=== PATIENT | female | born 1990 | race Caucasian/White ===

== ENCOUNTER → 2018-08-25 12:13 | Outpatient (CLI) | payer BC, SELFPAY ==
[2018-08-25 13:59] LABS: HCG,Quantitative 16629 mIU/mL
== END ==
PROVIDERS: Visit Provider Nurse Practitioner Obstetrics & Gynecology
DX: Z34.90 Encounter for supervision of normal pregnancy, unspecified, unspecified trimester (principal)
CPT/HCPCS: 36415; 84702

== ENCOUNTER → 2018-08-26 11:58 | Outpatient (CLI) | payer BC, SELFPAY ==
[2018-08-26 13:01] LABS: Basophils % 0.2 % (0.1-2.0); Eosinophils # 0.1 K/mm3 (0.0-0.4); Eosinophils % 1.3 % (0.1-12.0); Hematocrit 33.1 % (37.0-47.0); Hemoglobin 10.6 g/dL (12.2-16.2); Lymphocytes # 1.7 K/mm3 (0.7-4.5); Lymphocytes % 16.2 % (10-50); Mean Corpuscular HGB Conc 32.1 g/dL (31.8-35.4); Mean Corpuscular Hemoglobin 28.7 pg (27.0-31.2); Mean Corpuscular Volume 89.5 fl (81-99); Mean Platelet Volume 7.8 fl (7.4-10.4); Monocytes # 0.5 K/mm3 (0.1-1.0); Monocytes % 4.7 % (1.7-9.3); Neutrophils # 8.2 K/mm3 (1.8-7.8); Neutrophils % 77.6 % (37.0-80.0); Platelet Count 425 K/mm3 (142-424); Red Blood Count 3.69 M/mm3 (4.20-5.40); Red Cell Distribution Width 13.3 % (11.5-17.5); White Blood Count 10.6 K/mm3 (4.8-10.8)
[2018-08-27 11:16] LABS: HIV Screen 4th Generation wRfx Non Reactive (Non Reactive); Hepatitis B Surface Antigen Negative (Negative); Hepatitis C Antibody <0.1 s/co ratio (0.0-0.9); Rapid Plasma Reagin Ab Titer Non Reactive (NonRea<1:1); Rubella Antibodies, IgG 1.57 index (Immune >0.99)
== END ==
PROVIDERS: Visit Provider Nurse Practitioner Obstetrics & Gynecology
DX: Z34.90 Encounter for supervision of normal pregnancy, unspecified, unspecified trimester (principal)
CPT/HCPCS: 36415; 85025; 86592; 86703; 86762; 86850; 87340; 87380; G0432

== ENCOUNTER → 2018-08-28 14:24 | Outpatient (CLI) | payer BC, SELFPAY ==
--- NOTE | 2018-08-28 14:26 | US_ITS ---
US OB /maternal detail: INDICATION: ITS.REASON: US OB Complete ORDERING PHYSICIAN: Marvel Fajardo MD PATIENT AGE: 28 years TECHNIQUE: ultrasound transabdominal scanning. COMPARISON: No previous relevant studies. FINDINGS: Single viable intrauterine gestation. Cephalic position. Placenta: Anterior placenta grade 1. There is average amount fluid. The VIRGILIO is 12 cm The cervix appears satisfactory. Closed and measuring 4 cm in length. Complete survey performed and was unremarkable on the submitted images as in PACS. No discrete anomalies identified on survey imaging by technologist. Active fetus. Three-vessel cord with satisfactory umbilical cord insertion. 4- chamber heart noted. Survey of brain & ventricles unremarkable. Face and neck survey unremarkable. Diaphragm and chest views unremarkable. Abdomen: Both kidneys noted and unremarkable. Stomach noted and satisfactory. Spine: Survey of the spine satisfactory with no anomalies identified nor imaged. Both arms and legs noted. Amniotic Fluid: Adequate. Maternal adnexa: No significant findings. Measurements: Average ultrasound age 30w2d. Gestational Age unknown. Estimated due date by ultrasound age 0311/04/2018. Estimated weight 1539 grams. BPD = 30w0d OFD = 30w3d HC = 30w1d AC = 30w1d FL = 30w5d Growth Percentile= not calculated as the patient's established due date is not given Heart Rate = 152 Humerus = 30w1d HC/AC is 1.06. CI is 76%. FL/BPD is 79%. FL/AC is 23%. IMPRESSION: There is a live intrauterine gestation with average ultrasound age of 30 weeks 2 days. All parameters correlate. No obvious anomalies. See above for detail
== END ==
PROVIDERS: Visit Provider Nurse Practitioner Obstetrics & Gynecology
DX: Z36.0 Encounter for antenatal screening for chromosomal anomalies (principal)
CPT/HCPCS: 76811

== ENCOUNTER → 2018-09-03 12:10 | Outpatient (CLI) | payer BC, SELFPAY ==
[2018-09-03 12:49] LABS: Glucose,Fasting 82 mg/dL (60-105)
[2018-09-03 14:35] LABS: Glucose 1 Hour 97 mg/dL (74-106)
== END ==
PROVIDERS: Visit Provider Nurse Practitioner Obstetrics & Gynecology
DX: Z34.90 Encounter for supervision of normal pregnancy, unspecified, unspecified trimester (principal)
CPT/HCPCS: 36415; 82951

== ENCOUNTER → 2018-10-07 17:42 | Outpatient (CLI) | payer BC, SELFPAY | PROVIDERS: Visit Provider Nurse Practitioner Obstetrics & Gynecology | DX: Z34.90 Encounter for supervision of normal pregnancy, unspecified, unspecified trimester (principal) | CPT/HCPCS: 86403 ==

== ENCOUNTER 2018-10-08 11:14 | Inpatient (IN) ==
[2018-10-08 11:53] LABS: Basophils % 0.2 % (0.1-2.0); Eosinophils # 0.1 K/mm3 (0.0-0.4); Eosinophils % 0.5 % (0.1-12.0); Hematocrit 36.3 % (37.0-47.0); Hemoglobin 11.9 g/dL (12.2-16.2); Lymphocytes # 1.7 K/mm3 (0.7-4.5); Lymphocytes % 12.4 % (10-50); Mean Corpuscular HGB Conc 32.7 g/dL (31.8-35.4); Mean Corpuscular Hemoglobin 29.4 pg (27.0-31.2); Mean Platelet Volume 8.7 fl (7.4-10.4); Monocytes # 0.6 K/mm3 (0.1-1.0); Monocytes % 4.4 % (1.7-9.3); Neutrophils % 82.4 % (37.0-80.0); Platelet Count 356 K/mm3 (142-424); Red Blood Count 4.03 M/mm3 (4.20-5.40); Red Cell Distribution Width 14.4 % (11.5-17.5); White Blood Count 13.4 K/mm3 (4.8-10.8)
[2018-10-08 13:35] LABS: Microscopic, Urine URINE MICROSCOPIC (MICROSCOPIC)
[2018-10-08 13:36] LABS: Appearance,Urine SL CLOUDY (Clear); Bilirubin,Urine Negative (Negative); Blood, Urine 2+ (Negative); Color,Urine YELLOW (Yellow); Glucose,Urine (UA) Negative (Negative); Ketones,Urine Negative (Negative); Leukocyte Esterase,Urine 1+ (Negative); PH,Urine 8.5 (5.0-8.5); Protein,Urine Negative (Negative); Specific Gravity, Urine 1.015 (1.005-1.030); Urobilinogen,Urine 0.2 EU/dl (0.2)
[2018-10-08 13:51] LABS: Amorphous Sediment,Urine 1+ /lpf; Bacteria,Urine Trace /lpf; Squamous Epithelial Cell,Urine 20-50 #/hpf (0-5)
--- NOTE | 2018-10-08 14:11 | Procedure Note ---
- Delivery Note Delivery Date:: 10/08/18 Delivery Time:: 13:52 Anesthesia Type: Epidural Was labor medically induced?: No Induction method: none Gestational age (weeks): 36 delivered prior to 39 weeks?: Yes Justification for early elective delivery:: Active Labor Infant Gender: Female at 1 minute: 8 at 5 minutes: 8 AF:: Clear fluid clear fluid Delivery Procedure:: She is a 28-year-old 2 para 1 who is 36 weeks gestational age. She began having contractions last night around 10 PM and came in in active labor. She was found to be 6 cm dilated and when I examined her she was 8 cm dilated. I ruptured her membranes and under labor epidural she progressed to full dilation. She delivered spontaneously a liveborn female child at 1:52 PM in the afternoon of October 08, 2017. He was a liveborn female child with Apgars of 8 at 1 minute and 8 at 5 minutes. On deliver the head the anterior shoulder rapidly delivered followed by the rest of the infant's body atraumatically. We allowed the cord to continue to pulsate for approximately 1 minute. The baby was stimulated and cried spontaneously. The cord was then doubly clamped and cut and the infant was handed off to Dr. Shah who assigned Apgars of 8 at 1 minute and 8 at 5 minutes. We then obtained cord blood as well as cord pH. Using gentle traction on the cord and countertraction on the fundus I was able to easily deliver the placenta intact at 1:58 PM. He had a normal three-vessel cord. There were no perineal or vaginal lacerations. Her estimated blood loss was approximately 300 cc.
--- NOTE | 2018-10-08 14:15 | History & Physical Report ---
OB - H&P: HPI Antepartum - History of Present Illness Chief complaint: Contractions History of present illness: She is a 28-year-old 2 para 1 who began having contractions last night. She came in in active labor and was found to be 6 cm dilated. - History of Present Criteria for establishing EDC:: based on LMP only care: limited care Ultrasounds: normal mid trimester US Obstetrical complications: none Medical complications: none - Labs Blood type: A (+) positive Rubella: immune RPR/VDRL: nonreactive GBS status: unknown [facility] History I have reviewed the patient's past medical history: Yes Other Surgeries: Yes: Appendectomy - *Social History Smoking Status: Never smoker Tobacco Type: cigarettes Alcohol Intake: never *Occupational Status:: unemployed Family Hx:: No significant family history Review of Systems - Review of Systems Review of systems:: pertinent systems reviewed and negative unless documented below Meds Home Medications Medication Instructions Recorded Confirmed Type pediatric multivitamin chewable 1 tab PO DAILY 08/26/18 10/08/18 History tablet RX: Ferrous Sulfate 325 mg PO DAILY 10/08/18 10/08/18 History Allergies Allergy/AdvReac Type Severity Reaction Status Date / Time No Known Allergies Allergy Verified 10/07/18 14:48 OB - H&P: Exam - Constitutional no acute distress - Routine HEENT Exam Head: Present: normocephalic Eye: Present: EOMI, PERRL ENT: Present: mucous membranes moist - Routine Neck Exam Present: supple, full ROM - Routine Respiratory Exam Absent: accessory muscle use (good air entry bilaterally), respiratory distress, wheezes, crackles - Routine Cardiovascular Exam Present: RRR. Absent: murmur - Routine Abdominal Exam Present: soft, normoactive bowel sounds. Absent: tenderness, distended, guarding - Routine Rectal Exam Patient deferred: visual exam, digital exam - Routine Exam Patient deferred: external exam, groin exam, perineal exam - Routine Extremities Exam Present: full ROM. Absent: cyanosis, edema - Routine Skin Exam Present: intact. Absent: cyanosis - Routine Neurological Exam Present: alert, oriented X3 - Routine Psychiatric Exam Present: normal affect OB - Results - Labs Labs: Short CBC 10/08/18 Range/Units 11:42 WBC 13.4 H (4.8-10.8) K/mm3 Hgb 11.9 L (12.2-16.2) g/dL Hct 36.3 L (37.0-47.0) % Plt Count 356 (142-424) K/mm3 Urine 10/08/18 Range/Units 13:00 Urine Color Yellow (Yellow) Urine Appearance Sl cloudy (Clear) Urine pH 8.5 (5.0-8.5) Ur Specific [place] 1.015 (1.005-1.030) Urine Protein Negative (Negative) Urine Glucose (UA) Negative (Negative) OB - A/P Antepartum (1) labor in third trimester with delivery Current visit: Yes Status: Acute - Additional Plan Planning to breastfeed?: Yes Plan: expectant management Additional Information:: She is 6 cm dilated and will get an epidural. We will expect a vaginal delivery. She is actively luz.
[2018-10-08 15:52] LABS: Amphetamine/Metha Screen,Urine Negative ng/mL (<1000); Barbiturates Screen,Urine Negative ng/mL (<200); Benzodiazepines Screen,Urine Negative ng/mL (<200); Cannabinoid Screen,Urine Negative ng/mL (<50); Cocaine Screen,Urine Negative ng/mL (<300); Methadone Screen,Urine Negative ng/mL (<300); Opiate Screen,Urine Negative ng/mL (<300); Phencyclidine Screen,Urine Negative ng/mL (<25)
--- NOTE | 2018-10-08 16:22 | Progress Note ---
[facility] Anesthesia Checklist - Structural Data Admitted From: Inpatient Planned Operative Procedure/s: labor epidural Consent for Planned Operative Procedure(s) Verified: Yes - Airway Assessment C-Spine Mobility Assessed: Yes TMJ Mobility Assessed: Yes Dentition: Good Dentition - Neurological Assessment Level of Consciousness: Awake, Alert, Appropriate - Anesthesia Plan Anesthesia Risk discussed: Yes Anesthesia Plan: Verified ASA Class: II Anesthesia Type: Epidural [facility] History I have reviewed the patient's past medical history: Yes Other Surgeries: Yes: Appendectomy - *Social History Smoking Status: Never smoker Tobacco Type: cigarettes Alcohol Intake: never *Occupational Status:: unemployed Family Hx:: No significant family history
[2018-10-08 21:52] VITALS: BP 133/82
[2018-10-09 07:36] LABS: Hematocrit 31.9 % (37.0-47.0)
[2018-10-09 07:37] LABS: Hemoglobin 10.6 g/dL (12.2-16.2)
--- NOTE | 2018-10-09 10:55 | Progress Note ---
Internal Medicine - PN: María *Date: 10/09/18 *Time: 10:55 Interval history: She continues to do well this morning. She is eating and drinking and ambulating. She is breast-feeding. Her lochia is normal. Exam Vital signs and Labs for Last 24 Hours: Temp Pulse Resp BP Pulse Ox 97.4 F L 75 18 133/82 100 10/08/18 19:42 10/08/18 19:42 10/08/18 19:42 10/08/18 19:42 10/08/18 19:42 Laboratory Results - last 24 hr 10/08/18 11:42: WBC 13.4 H, RBC 4.03 L, Hgb 11.9 L, Hct 36.3 L, MCV 90.0, MCH 29.4, MCHC 32.7, RDW 14.4, Plt Count 356, MPV 8.7, Neut % (Auto) 82.4 H, Lymph % (Auto) 12.4, [place] % (Auto) 4.4, Eos % (Auto) 0.5, Baso % (Auto) 0.2, Neut # (Auto) 11.0 H, Lymph # (Auto) 1.7, [place] # (Auto) 0.6, Eos # (Auto) 0.1, Baso # (Auto) 0.0 10/08/18 11:42: Blood Type A Positive, Antibody Screen Negative 10/08/18 13:00: Urine Color Yellow, Urine Appearance Sl cloudy, Urine pH 8.5, Ur Specific [place] 1.015, Urine Protein Negative, Urine Glucose (UA) Negative, Urine Ketones Negative, Urine Blood 2+, Urine Nitrate Negative, Urine Bilirubin Negative, Urine Urobilinogen 0.2, Ur Leukocyte Esterase 1+ A, Urine RBC 5-10, Urine WBC 5-10, Ur Squamous Epith Cells 20-50, Amorphous Sediment 1+, Urine Bacteria Trace 10/08/18 13:00: Urine Opiates Screen Negative, Urine Methadone Screen Negative, Ur Barbituates Screen Negative, Ur Phencyclidine Scrn Negative, Ur Amphetamines Screen Negative, U Benzodiazepines Scrn Negative, Urine Cocaine Screen Negative, U Marijuana (THC) Screen Negative 10/08/18 14:08: Cord ABG pH 7.36 10/09/18 06:44: Hgb 10.6 L D, Hct 31.9 L I & O for Last 24 hours: Intake & Output 10/06/18 10/07/18 10/08/18 10/09/18 11:59 11:59 11:59 11:59 Weight 216 lb Microbiology Reports for the Last 24 Hours: Microbiology 10/08/18 13:00 Urine,Clean Catch Urine Culture - Preliminary - Constitutional no acute distress Assessment and Plan (1) labor in third trimester with delivery Current visit: Yes Status: Acute Category: Medical Code(s): O60.14X0 - labor third trimester with delivery third trimester, not applicable or unspecified - Assessment and plan all Dx Assessment and Plan for all problems:: She continues to do well. We will plan to send her home tomorrow.
--- NOTE | 2018-10-10 11:05 | Discharge Summary ---
General - General Admission date:: 10/08/18 Discharge date: 10/10/18 HPI HPI: She is a 28-year-old 2 para 1 who is 36+ weeks gestational age. She came in in active labor and was found to be 6 dilated. She progressed to 8 cm and had her membranes ruptured. Under labor epidural she progressed to full dilation. Hospital Course Hospital Course: She progressed under labor epidural to full dilation and delivered spontaneously a liveborn female child at 1:52 PM in the afternoon of October 08, 2017. Baby born feed 15 ounces. She had Apgars of 8 at 1 minute and 8 at 5 minutes. She has remained afebrile throughout her hospitalization. She is eating and drinking and ambulating. She is breast-feeding. Her lochia is normal. She has a positive blood, she is rubella immune and her group B streptococcus status was unknown. She did receive IV antibiotics while in labor. She is discharged home to follow-up with me in approximately 2 weeks time. She is just to counter analgesics for pain. She will continue with her vitamins and iron. Rhogam Administration: Not Indicated Objective Vital signs: Temp Pulse Resp BP Pulse Ox 97.4 F L 75 18 133/82 100 10/08/18 19:42 10/08/18 19:42 10/08/18 19:42 10/08/18 19:42 10/08/18 19:42 no acute distress DS: Diagnosis - Discharge Diagnosis (1) labor in third trimester with delivery Status: Acute Discharge Plan - Patient Discharge Instructions ACTIVITY: No heavy lifting DIET: continue same diet Additional Instructions: No heavy lifting, no strenuous activity, nothing in the vagina for 6 weeks. Patient Instructions: Depression, Hemorrhage, Post Discharge Instructions - Follow up Plan Follow up with: Marvel Fajardo MD [Staff Physician] - Disposition: Home, Self-[facility] Medications: Home Medications Medication Instructions Recorded Confirmed Type pediatric multivitamin chewable 1 tab PO DAILY 08/26/18 10/08/18 History tablet Ferrous Sulfate 325 mg PO DAILY 10/08/18 10/08/18 History Prescriptions/Medication Reconciliation: Continue pediatric multivitamin chewable tablet 1 tab PO DAILY Ferrous Sulfate 325 mg PO DAILY
== END 2018-10-10 12:00 | disposition home or self-care (01) | DRG 807 ==
LOC: UTC.OUT 11:14 → OB 11:15
PROVIDERS: ADMIT Nurse Practitioner Obstetrics & Gynecology; ATTEND Nurse Practitioner Obstetrics & Gynecology
CPT/HCPCS: J0290